=== PATIENT | female | born 1980 | race Caucasian/White ===

== ENCOUNTER 2017-07-02 09:32 | Emergency (ER) | payer OTHER ==
[~2017-07-02] VITALS: Ht 152.4 cm; Wt 92.0 kg
[~2017-07-02 09:32] MED LIST: CINNAMON500 MG PO; MOTRIN IB200 MG PO; MOTRIN800 MG PO; NOHOMEMEDS
[2017-07-02 10:12] LABS: EOSINOPHIL (%) 0.7 % (0-5); EOSINOPHIL COUNT 0.1 K/uL (0-0.3); HEMATOCRIT 39.6 % (36.0-46.0); IMMATURE GRANULOCYTE (%) 0.5 % (0.0-0.7); IMMATURE GRANULOCYTE COUNT 0.1 K/uL; INSTRUMENT ABS NEUTROPHIL CT 6.2 K/uL; LYMPHOCYTE COUNT 2.9 K/uL (1.0-2.8); MCH 28.4 PG (29.0-34.0); MCHC 34.1 G/DL (30.0-36.0); MCV 83.4 FL (83-99); MONOCYTE (%) 3.9 % (3-12); MONOCYTE COUNT 0.4 K/uL (0-0.8); NEUTROPHIL (%) 64.4 % (45-76); NEUTROPHIL COUNT 6.2 K/uL (1.8-6.4); PLATELET COUNT 413 K/uL (156-360); RBC DIS.WIDTH-CV 12.2 % (11.8-14.6); RBC DIS.WIDTH-SD 37.3 % (39-53); RED BLOOD COUNT 4.75 M/uL (3.80-5.20); WHITE BLOOD COUNT 9.7 K/uL (4.1-10.2)
[2017-07-02 10:26] LABS: CHLORIDE 108 mEq/L (99-109); POTASSIUM 4.2 mEq/L (3.7-5.4); SODIUM 139 mEq/L (136-147)
[2017-07-02 10:27] LABS: GLUCOSE 137 mg/dL (70-99)
[2017-07-02 10:29] LABS: ANION GAP 13 MEQ/L (2-14)
[2017-07-02 10:31] LABS: GFR ESTIMATE (CALCULATED) > 59 mL/min/
[2017-07-02 10:32] LABS: UREA NITROGEN (BUN) 19 mg/dL (9-23)
[2017-07-02 10:36] LABS: TROP-I INTERPRETATION NEGATIVE; TROPONIN-I < 0.01 ng/mL (0.0-0.30)
[2017-07-02 13:08] LABS: D-DIMER ELISA < 150.00 ng/mLDDU (<230)
[2017-07-02 13:22] LABS: TROP-I INTERPRETATION NEGATIVE; TROPONIN-I < 0.01 ng/mL (0.0-0.30)
[2017-07-02] MEDS ORDERED: PERCOCET 5/31 TABLET PO (13:31)
[2017-07-02 13:57] VITALS: BP 111/87
== END 2017-07-02 13:59 | disposition home or self-care (01) ==
LOC: EME 09:32
PROVIDERS: Emergency Medicine
DX: R07.89 Other chest pain (principal); M79.602 Pain in left arm; R06.6 Hiccough; R11.0 Nausea; R00.0 Tachycardia, unspecified; Z85.43 Personal history of malignant neoplasm of ovary; Z90.721 Acquired absence of ovaries, unilateral; Z87.891 Personal history of nicotine dependence
CPT/HCPCS: 71010; 80048; 84484; 85025; 85379; 85730; 93005; 99281; 99285; J1885; J2270